=== PATIENT | male | born 1950 | race Caucasian/White ===

== ENCOUNTER 2017-07-23 06:06 | Emergency (ER) | payer OTHER ==
[~2017-07-23] VITALS: Ht 177.8 cm; Wt 159.1 kg
[~2017-07-23 06:06] MED LIST: ASPI325T PO; CIPR500T4 PO; ENAL20TA81 PO; IMDU60TA PO; LANTUSP SQ; LUTE20CA PO; MACR100C PO; METO100T PO; NEUR800T PO; NORC7.5T PO; NOVOLOGSS SQ; OMEP40CA2 PO; PROC60TA PO; PROM25SU8 PO; TAB-TAB PO; ZOCO40TA PO
[2017-07-23 06:22] VITALS: BP 155/69; PULSE 73; RESP 20; TEMP 98; O2SAT 95
[2017-07-23] MEDS ORDERED: ASPI325T PO (06:35)
[2017-07-23] MEDS ORDERED: NIFE1TAB86 PO (06:35)
[2017-07-23] MEDS ORDERED: ZOCO40TA PO (06:35)
[2017-07-23] MEDS ORDERED: GABA800T PO (06:35)
[2017-07-23] MEDS ORDERED: OMEP40CA2 PO (06:35)
[2017-07-23] MEDS ORDERED: NOVOLOGP2 SQ (06:35)
[2017-07-23] MEDS ORDERED: ISOS20TA PO (06:35)
[2017-07-23] MEDS ORDERED: LANTUS2P SQ (06:35)
[2017-07-23] MEDS ORDERED: ENAL20TA81 PO (06:35)
[2017-07-23] MEDS ORDERED: MULTTAB67 PO (06:35)
[2017-07-23] MEDS ORDERED: OFFICE MEDICATION EACH EYE (06:35)
[2017-07-23] MEDS ORDERED: METO100T PO (06:35)
[2017-07-23] MEDS ORDERED: SODIUM CHLORIDE 0.9% FLUSH 10 ML FLUSH IVF PRN (07:00)
[2017-07-23 07:11] LABS: AUTOMATED NEUTROPHIL # 7.3 TH/MM3 (1.8-7.7); BASOPHIL % 0.4 % (0.0-2.0); EOSINOPHIL # 0.2 TH/MM3 (0-0.4); EOSINOPHIL % 1.7 % (0.0-4.0); HEMATOCRIT 40.5 % (39.0-51.0); HEMO FLAGS DIFF FINAL; LYMPH % 13.7 % (9.0-44.0); LYMPHOCYTE # 1.3 TH/MM3 (1.0-4.8); MEAN CELL VOLUME 92.5 FL (80.0-100.0); MEAN CORPUSCULAR HEMOGLOBIN 30.3 PG (27.0-34.0); MEAN CORPUSCULAR HGB CONC 32.8 % (32.0-36.0); MONO % 6.1 % (0.0-8.0); NEUT % 78.1 % (16.0-70.0); PLATELET COUNT 250 TH/MM3 (150-450); RED BLOOD COUNT 4.38 MIL/MM3 (4.50-5.90); RED CELL DISTRIBUTION WIDTH 14.9 % (11.6-17.2); WHITE BLOOD COUNT 9.4 TH/MM3 (4.0-11.0)
--- NOTE | 2017-07-23 07:21 | RADRPT ---
EXAM DATE/TIME: 07/23/2017 07:08 [facility] COMPARISON: CHEST SINGLE AP, June 30, 2014, 23:38. INDICATIONS : Short of breath, dizziness. MEDICAL HISTORY : Hypercholesterolemia. Hypertension Myocardial infarction. Gall stones. Arthritis. Diabetic. SURGICAL HISTORY : CABG. ENCOUNTER: Initial ACUITY: 1 day PAIN SCORE: 0/10 LOCATION: chest FINDINGS: There is advanced cardiomegaly. The patient is post median sternotomy. There are chronic appearing in terstitial changes. No pleural effusion is evident. The overall appearance of the parenchyma similar to the previous dated 06/30/14. The visualized bony structures are grossly intact. CONCLUSION: 1. Advanced cardiomegaly. Stable compared to prior exam. 2. The patient is post median sternotomy. Jay Baker MD on July 23, 2017 at 7:19 Board Certified Radiologist. This report was verified electronically.
[2017-07-23 07:31] LABS: ALT (GPT) 23 U/L (12-78); ANION GAP 7 MEQ/L (5-15); AST (GOT) 14 U/L (15-37); BICARBONATE 26.6 MEQ/L (21.0-32.0); BLOOD UREA NITROGEN 19 MG/DL (7-18); CHLORIDE 105 MEQ/L (98-107); GLOMERULAR FILTRATION RATE 74 ML/MIN (>89); MAGNESIUM 1.9 MG/DL (1.5-2.5); POTASSIUM 4.1 MEQ/L (3.5-5.1); SODIUM (NA) 139 MEQ/L (136-145)
[2017-07-23 07:34] LABS: APTT (PATIENT) 27.9 SEC (24.3-30.1)
[2017-07-23 07:36] LABS: ALKALINE PHOSPHATASE 97 U/L (45-117); TOTAL BILIRUBIN ADULT 0.7 MG/DL (0.2-1.0)
--- NOTE | 2017-07-23 07:46 | PD ---
HPI Chief Complaint: Respiratory Distress Time Seen by Provider: 07:00 Travel History International Travel<30 days: No Contact w/Intl Traveler<30days: No Traveled to known affect area: No History of Present Illness HPI Patient is a 67 year old male who comes in complaining of shortness of breath and dizziness. He says this started Sunday and has been getting worse. He says that his symptoms come on when he stands and go away when he sits down. He says that the symptoms really came on because he was moving furniture and painting, which is much more activity then he has done in a long time. Laying flat makes his shortness of breath worse. He denies any chest pain. He denies cough or cold symptoms, fever or chills. He says the dizziness is a lightheaded feeling. He says he has had some increased leg swelling. PFSH Past Medical History Arthritis: Yes Anxiety: Yes Depression: Yes Heart Rhythm Problems: No Cancer: No Cardiac Catheterization: No Cardiovascular Problems: Yes (bypass) High Cholesterol: Yes Congestive Heart Failure: No Diabetes: Yes Patient Takes Glucophage: No Diminished Hearing: No Endocrine: No Gastrointestinal Disorders: Yes Genitourinary: No Hypertension: Yes Implanted Vascular Access Dvce: No Musculoskeletal: Yes Neurologic: No Psychiatric: Yes Reproductive: No Respiratory: No Myocardial Infarction: Yes (2000) Thyroid Disease: No Past Surgical History Coronary Artery Bypass Graft: Yes (2000) Other Surgery: Yes Social History Alcohol Use: No Tobacco Use: No Substance Use: No Allergies-Medications (Allergen,Severity, Reaction): Coded Allergies: Sulfa (Sulfonamide Antibiotics) (Unverified Allergy, Severe, Flushing, ) RED FACE iodine (Unverified Allergy, Mild, 05/22/17) DENIES ALLERGY TO MEDICATION/NEED ORDER TO DC potassium iodide (Unverified Allergy, Mild, 05/22/17) DENIES ALLERGY TO MEDICATION/NEED ORDER TO DC povidone-iodine (Unverified Allergy, Mild, 05/22/17) DENIES ALLERGY TO MEDICATION/NEED ORDER TO DC sodium iodide (Unverified Allergy, Mild, 05/22/17) DENIES ALLERGY TO MEDICATION/NEED ORDER TO DC sodium iodide (Unverified Allergy, Mild, 05/22/17) DENIES ALLERGY TO MEDICATION/NEED ORDER TO DC ciprofloxacin (Unverified Adverse Reaction, Intermediate, Hypoglycemia, ) Reported Meds & Prescriptions Reported Meds & Active Scripts Active Reported Zocor (Simvastatin) 40 Mg Tab 40 Mg PO DAILY Omeprazole 40 Mg Cap 40 Mg PO DAILY Procardia XL (Nifedipine) 60 Mg Tab 60 Mg PO DAILY Multiple Vitamin 1 Tab 1 Tab PO DAILY Metoprolol Tartrate 100 Mg Tab 100 Mg PO BID Office Medication (Miscellaneous Medication) Misc 1 Drop EACH EYE DAILY Isosorbide Mononitrate 20 Mg Tab 30 Mg PO BID Take 2 doses 7 hours apart. Lantus Inj (Insulin Glargine) 1,000 Unit/10 Ml Vial 65 Units SQ HS Novolog Inj (Insulin Aspart) 1,000 Unit/10 Ml Vial 5 Units SQ TIDAC Gabapentin 800 Mg Tab 800 Mg PO TID Vasotec (Enalapril Maleate) 20 Mg Tab 20 Mg PO BID Aspirin 325 Mg Tab 325 Mg PO DAILY Review of Systems Except as stated in HPI: all other systems reviewed are Neg General / Constitutional: No: Fever, Chills Eyes: No: Blurred Vision HENT: Positive: Lightheadedness, No: Headaches Cardiovascular: No: Chest Pain or Discomfort Respiratory: Positive: Shortness of Breath, No: Cough Gastrointestinal: Positive: Nausea, No: Vomiting, Abdominal Pain Genitourinary: No: Dysuria Musculoskeletal: Positive: Edema, No: Myalgias Skin: No Rash, No Change in Pigmentation Neurologic: No: Weakness, Dizziness Physical Exam Narrative GENERAL: Awake and alert, in no acute distress. SKIN: Focused skin assessment warm/dry. HEAD: Atraumatic. Normocephalic. EYES: Pupils equal and round. No scleral icterus. EOMI, no nystagmus. ENT: Mucous membranes pink and moist. NECK: Trachea midline. No JVD. CARDIOVASCULAR: Regular rate and rhythm. No murmur appreciated. RESPIRATORY: No accessory muscle use. Clear to auscultation. Breath sounds equal bilaterally. GASTROINTESTINAL: Abdomen soft, non-tender, nondistended. MUSCULOSKELETAL: No obvious deformities. No clubbing. No cyanosis. 1+ pitting edema bilateral lower extremities, no calf tenderness. NEUROLOGICAL: Awake and alert. No obvious cranial nerve deficits. Motor grossly within normal limits. Normal speech. PSYCHIATRIC: Appropriate mood and affect; insight and judgment normal. Data Data Last Documented VS Vital Signs Date Time Temp Pulse Resp B/P (MAP) Pulse Ox O2 Delivery O2 Flow Rate FiO2 07/23/17 06:22 98.0 73 20 155/69 (97) 95 Orders Orders Complete Blood Count With Diff (07/23/17 06:53) Comprehensive Metabolic Panel (07/23/17 06:53) B-Type Natriuretic Peptide (07/23/17 06:53) D-Dimer (07/23/17 06:53) Act Partial Throm Time (Ptt) (07/23/17 06:53) Prothrombin Time / Inr (Pt) (07/23/17 06:53) Magnesium (Mg) (07/23/17 06:53) Ckmb (Isoenzyme) Profile (07/23/17 06:53) Troponin I (07/23/17 06:53) Iv Access Insert/Monitor (07/23/17 06:53) Electrocardiogram (07/23/17 06:53) Ecg Monitoring (07/23/17 06:53) Oximetry (07/23/17 06:53) Oxygen Administration (07/23/17 06:53) Chest, Single Ap (07/23/17 06:53) Sodium Chloride 0.9% Flush (Ns Flush) (07/23/17 07:00) Ct Pulmonary Angiogram (07/23/17 07:38) Meclizine (Antivert) (07/23/17 08:15) Iohexol 350 Inj (Omnipaque 350 Inj) (07/23/17 08:35) Labs Laboratory Tests Test 07/23/17 07:00 White Blood Count 9.4 TH/MM3 Red Blood Count 4.38 MIL/MM3 Hemoglobin 13.3 GM/DL Hematocrit 40.5 % Mean Corpuscular Volume 92.5 FL Mean Corpuscular Hemoglobin 30.3 PG Mean Corpuscular Hemoglobin Concent 32.8 % Red Cell Distribution Width 14.9 % Platelet Count 250 TH/MM3 Mean Platelet Volume 8.4 FL Neutrophils (%) (Auto) 78.1 % Lymphocytes (%) (Auto) 13.7 % Monocytes (%) (Auto) 6.1 % Eosinophils (%) (Auto) 1.7 % Basophils (%) (Auto) 0.4 % Neutrophils # (Auto) 7.3 TH/MM3 Lymphocytes # (Auto) 1.3 TH/MM3 Monocytes # (Auto) 0.6 TH/MM3 Eosinophils # (Auto) 0.2 TH/MM3 Basophils # (Auto) 0.0 TH/MM3 CBC Comment DIFF FINAL Differential Comment Prothrombin Time 11.0 SEC Prothromb Time International Ratio 1.0 RATIO Activated Partial Thromboplast Time 27.9 SEC D-Dimer Quantitative (PE/DVT) 0.88 MG/L FEU Blood Urea Nitrogen 19 MG/DL Creatinine 1.01 MG/DL Random Glucose 112 MG/DL Total Protein 7.3 GM/DL Albumin 3.5 GM/DL Calcium Level 8.4 MG/DL Magnesium Level 1.9 MG/DL Alkaline Phosphatase 97 U/L Aspartate Amino Transf (AST/SGOT) 14 U/L Alanine Aminotransferase (ALT/SGPT) 23 U/L Total Bilirubin 0.7 MG/DL Sodium Level 139 MEQ/L Potassium Level 4.1 MEQ/L Chloride Level 105 MEQ/L Carbon Dioxide Level 26.6 MEQ/L Anion Gap 7 MEQ/L Estimat Glomerular Filtration Rate 74 ML/MIN Total Creatine Kinase 96 U/L Troponin I LESS THAN 0.02 NG/ML B-Type Natriuretic Peptide 56 PG/ML MDM Medical Decision Making Medical Screen Exam Complete: Yes Emergency Medical Condition: Yes Medical Record Reviewed: Yes Interpretation(s) ECG shows NSR at 71, left anterior fascicular block, no ST elevation Differential Diagnosis CHF vs ACS vs pneumonia vs PE Narrative Course A 67-year-old male comes in complaining of shortness of breath on exertion. He does say that he has been exerting himself much more lately and that seems to bring on the shortness of breath. He has not had any chest pain. Exam shows minimal edema bilateral lower extremities. IV established, labs sent. Patient connected to the playground monitor. Show an elevated d-dimer. CTA of the chest was performed shows no evidence of PE, no abnormalities other than possible pulmonary hypertension. Last [address] Angiography 07/23/17 0738 Signed Impressions: Service Date/Time: Sunday, July 23, 2017 08:29 - CONCLUSION: 1. No evidence for pulmonary embolism. 2. Status post CABG. 3. No infiltrate. 4. The pulmonary arteries are prominent suggesting pulmonary arterial hypertension. Prabhjot Laws MD Chest X-Ray 07/23/17 0653 Signed Impressions: Service Date/Time: Sunday, July 23, 2017 07:08 - CONCLUSION: 1. Advanced cardiomegaly. Stable compared to prior exam. 2. The patient is post median sternotomy. Jay Baker MD Patient was given a meclizine for his dizziness. He says this seems to have helped. He is offered observation stay, however he declines at this time. I did inform him I cannot rule out 100% cardiac causes, but he wishes to go home. He'll be discharged with a prescription for meclizine. He is advised to follow-up with his certified detention deputy, Dr. Terrazas as soon as possible. Advised to return as needed for any worsening symptoms. Diagnosis Primary Impression: Dizziness Additional Impression: Shortness of breath on exertion Patient Instructions: Dizziness (ED), General Instructions, Shortness of Breath (ED) Additional Instructions: Follow-up with your certified detention deputy, Dr. Terrazas, as soon as possible. Return to the ED as needed for any worsening symptoms. Take meclizine only as needed for dizziness. Scripts Meclizine (Meclizine) 25 Mg Tab 25 MG PO TID Y for VERTIGO, #15 TAB 0 Refills Prov: Lola Piper MD 07/23/17 Disposition: DISCHARGE HOME Condition: Stable Lola Piper MD Jul 23, 2017 07:46
[2017-07-23 07:49] LABS: CREATINE KINASE 96 U/L (39-308)
[2017-07-23] MEDS ORDERED: MECLIZINE HCL 25 MG TAB PO ONE (08:15)
[2017-07-23] MEDS ORDERED: IOHEXOL 350 MG/ML 10 ML VIAL (for RAD DIAG) IVCONTRAST ONE (08:35)
--- NOTE | 2017-07-23 08:48 | RADRPT ---
EXAM DATE/TIME: 07/23/2017 08:29 [facility] COMPARISON: No previous studies available for comparison. INDICATIONS : Shortness of breath and dizziness. IV CONTRAST: 98 cc Omnipaque 350 (iohexol) IV RADIATION DOSE: 23.38 CTDIvol (mGy) MEDICAL HISTORY : Diabetes mellitus type 2. Hypertension. Cardiovascular disease SURGICAL HISTORY : None. ENCOUNTER: Initial ACUITY: 1 day PAIN SCALE: 0/10 LOCATION: Bilateral chest TECHNIQUE: Volumetric scanning of the chest was performed using a pulmonary embolism protocol MIP images were re constructed. Using automated exposure control and adjustment of the mA and/or kV according to patien t size, radiation dose was kept as low as reasonably achievable to obtain optimal diagnostic quality images. DICOM format image data is available electronically for review and comparison. Follow-up recommendations for detected pulmonary nodules are based at a minimum on nodule size and pa tient risk factors according to Fleischner Society Guidelines. FINDINGS: PULMONARY ARTERIES: No filling defects are seen in the pulmonary arteries through the segmental level. Pulmonary arteries slightly prominent. LUNGS: There is no consolidation or pneumothorax . No concerning pulmonary nodule is visualized. PLEURAE: There is no pleural thickening or pleural effusion. MEDIASTINUM: There is good visualization of the great vessels of the middle mediastinum. No evidence of mediastin al or hilar adenopathy/mass. Vascular calcifications. Status post CABG. MUSCULOSKELETAL: Within normal limits for patient age. MISCELLANEOUS: The visualized upper abdominal organs demonstrate no acute abnormality. Status post cholecystectomy CONCLUSION: 1. No evidence for pulmonary embolism. 2. Status post CABG. 3. No infiltrate. 4. The pulmonary arteries are prominent suggesting pulmonary arterial hypertension. Prabhjot Laws MD on July 23, 2017 at 8:43 Board Certified Radiologist. This report was verified electronically.
[2017-07-23] MEDS ORDERED: MECL-62 PO (09:26)
[2017-07-23 09:54] VITALS: BP 150/68; PULSE 72; RESP 18; O2SAT 95
--- NOTE | 2017-07-23 21:56 | EKG ---
Date Performed: 07/23/2017 Time Performed: 06:21:00 PTAGE: 67 years EKG: Sinus rhythm LEFT ANTERIOR FASCICULAR BLOCK POSSIBLE ANTERIOR MYOCARDIAL INFARCTION ABNORMAL ECG PREVIOUS TRACING : 08/19/2015 05.15 Compared to prior tracing no significant change DOCTOR: Cruzito Cervantes Interpretating Date/Time 07/23/2017 21:55:06
== END 2017-07-23 10:15 | disposition home or self-care (01) ==
LOC: NEPE 06:06
DX: R42 Dizziness and giddiness (principal); R06.02 Shortness of breath; M79.89 Other specified soft tissue disorders; E78.00 Pure hypercholesterolemia, unspecified; E11.9 Type 2 diabetes mellitus without complications; I10 Essential (primary) hypertension; I25.2 Old myocardial infarction; R94.31 Abnormal electrocardiogram [ECG] [EKG]
CPT/HCPCS: 71010; 71275; 80053; 82550; 83735; 83880; 84484; 85025; 85379; 85610; 85730; 93005; 99285; Q9967